=== PATIENT | male | born 1960 ===

== ENCOUNTER → 2016-11-30 | Day surgery (SDC) | payer OTHER ==
[~2016-11-30] VITALS: Ht 175.3 cm; Wt 75.7 kg
[~2016-11-30] MED LIST: FINASTERIDE5 M1 PO; FLOMAX0.4 M1 PO; NEXIUM40 M1 PO
--- NOTE | 2016-11-30 14:09 | Operative Report ---
Operative/Inv Procedure Report Surgery Date: 11/30/16 Name of Procedure: Cystoscopy, R ureteroscopy, laser lithotripsy, R ureteral stent insertion Pre-Operative Diagnosis: R ureteral calculus Post-Operative Diagnosis: Same Estimated Blood Loss: less than 50ml Surgeon/Radiosonde Specialist: Reji GOYAL,[place] Bush Anesthesia: laryngeal mask airway Drains: 24 cm, 6 fr R double J ureteral stent Specimens: R ureteral stone fragment Complications: none Condition: stable Operative Indication: This patient had R flank pain. CT at an outside hospital showed a 5 mm R proximal ureteral calculus and a small R renal calculus. He continues to have R flank pain and was scheduled for R ureteroscopy and removal of the R ureteral stone Operative/Procedure Note Note: The patient was taken to the OR and identified. He was placed in the supine position on the cystoscopy table. A time out was executed appropriately with the patient awake. General anesthesia was induced via an LMA. He was prepped and draped in the usual fashion for cystoscopy. A surgical pause was executed appropriately. A fluoroscopy image was taken with a marker on the right side of the abdomen to confirm the correct side of the surgery as well as a correct orientation of the fluoroscopy image The 22 fr cystoscopy was placed into the bladder under direct vision using the 30 degree lens. The anterior urethra was normal. The prostatic urethral showed trilobar hypertrophy with partial bladder outlet obstruction and was 3 cm in length. The bladder was inspected and was normal. Both ureteral orifices were normal in location and appearance. The R ureteral orifice was intubated with a guidewire. The cystoscopy was removed leaving the wire in place. The short rigid ureteroscope was advanced through the urethra into the bladder. It was difficult to get the ureteroscope into the right ureteral orifice and therefore second wire was placed through the ureteroscope into the right orifice. Bypassing ureteroscope over the wire the ureteroscope was easily advanced into the right distal ureter. About 2 cm proximal to the ureterovesical junction a 6 mm stone was seen. The 600 holmium laser fiber was then used to fragment the stone into multiple small fragments. Using a spiral basket stone fragment was removed and sent for stone analysis. The remaining sizable fragments were engaged in the basket and deposited in the bladder for the patient to pass spontaneously. At this point ureteroscope was advanced superiorly. Was advanced up the level of the ureteropelvic junction. The right ureter was dilated but there was no evidence of any further stones. The ureter was inspected again as the ureteroscope was removed. Again no stone fragments were seen remaining in the ureter. Cystoscope was then back loaded onto the guidewire. An open-ended catheter was placed over the wire which was removed. Some contrast was injected outlining the right renal collecting system. Next a guidewire was placed back through the open-ended catheter which was removed. Under visual fluoroscopic control a 24 cm 6 Croatian right double-J ureteral stent was placed area fluoroscopy confirmed the proximal end coiled in the kidney and the distal end coiled in the bladder. A long suture was left attached the distal end of the stent exiting the urethra. The cystoscope was removed after draining the bladder. The patient tolerated the procedure well and as completion was taken recovery room in stable condition. Findings: 6 mm right distal ureteral calculus with mild to moderate right proximal hydroureter Discharge Disposition: PACU CC: SUMAN GOYAL,[place] Bush
--- NOTE | 2016-11-30 17:30 | RADIOLOGY REPORT ---
EXAMINATION: XR ABDOMEN CLINICAL INDICATION: Right ureteroscopy, lithotripsy, retrograde stent insertion performed in operating room. COMPARISON: None TECHNIQUE: Fluoroscopic imaging assistance was provided to the operating room. A total of 8 spot fluoroscopy images of the right abdomen are submitted into the electronic picture archive. The fluoroscopy time was 0.2 minutes. FINDINGS: Fluoroscopic imaging assistance was provided to the operating room. Please refer to the operative report from Dr. Sellers regarding indications for the urologic procedures, intraoperative findings and specific procedures performed. A right ureteral stent was deployed. IMPRESSION: Fluoroscopic imaging assistance was provided to the operating room.
== END ==
LOC: STS 02:25
DX: N20.1 Calculus of ureter (principal); N20.0 Calculus of kidney; N40.0 Benign prostatic hyperplasia without lower urinary tract symptoms; Z22.322 Carrier or suspected carrier of Methicillin resistant Staphylococcus aureus; K21.9 Gastro-esophageal reflux disease without esophagitis
CPT/HCPCS: 74000; 82355; C2617; J0690; J1100; J1885; J2250; J2405